=== PATIENT | male | born 1990 | race Caucasian/White ===

== ENCOUNTER → 2016-09-20 | Outpatient (CLI) | payer BC ==
[2016-09-25 10:20] LABS: BEEF CLASS 0; BEEF IGE <0.10 KU/L; CASHEW CLASS 1; CASHEW IGE 0.45 KU/L; CHOCOLATE CLASS 0; CHOCOLATE IGE <0.10 KU/L; CLAM CLASS 0; CLAM IGE <0.10 KU/L; CORN CLASS 0/1; CORN IGE 0.29 KU/L; CRAB CLASS 0/1; CRAB IGE 0.14 KU/L; EGG MIX CLASS 0; EGG MIX IGE <0.10 KU/L; HAZELNUT CLASS 1; LOBSTER CLASS 0/1; PECAN NUT CLASS 0; PECAN NUT IGE <0.10 KU/L; PISTACHIO CLASS 0/1; PISTACHIO IGE 0.21 KU/L; PORK CLASS 0; PORK IGE <0.10 KU/L; RAST ALMOND CLASS 0/1; RAST ALMOND IGE 0.19 KU/L; RAST BRAZIL NUT CLASS 0/1; RAST BRAZIL NUT IGE 0.28 KU/L; SHRIMP CLASS 1; SOY CLASS 2; SOY IGE 2.08 KU/L; WALNUT CLASS 0/1; WHEAT CLASS 0/1; WHEAT IGE 0.19 KU/L
== END | disposition home or self-care (01) ==
LOC: C.LAB1850 09:04
PROVIDERS: ATTEND Internal Medicine Pulmonary Disease
DX: J30.9 Allergic rhinitis, unspecified (principal); J45.909 Unspecified asthma, uncomplicated; Z91.018 Allergy to other foods